=== PATIENT | male | born 1985 | race Caucasian/White ===

== ENCOUNTER 2017-11-17 16:16 | Emergency (ER) | payer OTHER ==
[2017-11-17 17:25] LABS: ABS Basophils 0 10^3/ul (0-0.2); ABS Eosinophils 0.2 10^3/ul (0-0.6); ABS Monocytes 0.6 10^3/ul (0-0.8); ABS Nucleated RBC 0 10^3/ul; Eosinophil % 4.2 % (0-6); Hematocrit 45 % (42-52); Hemoglobin 15.9 g/dl (14.0-18.0); Lymphocyte % 33.5 % (25-47); Mean Corpuscular HGB Conc 35 g/dl (31-36); Mean Corpuscular Hemoglobin 30 pg (27-31); Mean Corpuscular Volume 86 fL (80-94); Mean Platelet Volume 8.1 um3 (7.4-10.4); Nucleated Red Blood Cells % 0.1; Platelet Count 215 10^3/ul (150-450); Red Blood Count 5.25 10^6/ul (4.0-5.4); Red Cell Distribution Width 12 % (10.5-15); White Blood Count 5.9 10^3/ul (3.5-10.8)
[2017-11-17 17:44] LABS: EGFR Non-African American 77.9 (>60)
[2017-11-17] MEDS ORDERED: Iohexol 300* (CONTRAST) 10 ML SDV IV ONE (19:07)
--- NOTE | 2017-11-17 20:04 | RAD ---
CLINICAL HISTORY: Left lower quadrant pain in left upper quadrant pain COMPARISON: None TECHNIQUE: Multiple contiguous axial CT scans were obtained of the abdomen and pelvis after the administration of intravenous contrast. Coronal and sagittal multiplanar reformations are submitted for review. Oral contrast was not administered. Delayed images were obtained through the abdomen. FINDINGS: LUNG BASES: The lung bases are clear. LIVER: There is a hypervascular lesion of the right lobe liver measuring 1.5 cm that resolves on delayed images suggestive of a flash filling hemangioma. BILE DUCTS: There is no intrahepatic or extrahepatic biliary dilatation. GALLBLADDER: The gallbladder is normal, without pericholecystic inflammatory change. PANCREAS: The pancreas is normal, without mass or ductal dilatation. SPLEEN: Normal in size and appearance. UPPER GI TRACT: Evaluation of the gastrointestinal tract is limited by incomplete gastric distention. The upper GI tract is unremarkable. SMALL BOWEL AND MESENTERY: The small bowel is normal in contour, course, and caliber. There is no obstruction or dilatation. COLON: The colon is normal in contour, course, caliber. There is no pericolonic inflammatory change. There is a tubular, vermiform, hollow viscus that is blind ending, and originates from the cecum, consistent with a normal appendix. There is no periappendiceal inflammatory change. This is best seen on coronal images 35 through 41. ADRENALS: Normal bilaterally. KIDNEYS: The kidneys are normal in shape, size, contour, and axis. There is no hydronephrosis or nephrolithiasis. BLADDER: The bladder is smooth in contour. PELVIC ORGANS: The prostate gland is normal. The seminal vesicles are symmetric. AORTA: The aorta is normal. IVC: Unremarkable LYMPH NODES: There is no lymphadenopathy by size criteria. ABDOMINAL WALL: There is no evidence for abdominal wall hernia. BONES AND SOFT TISSUES: Unremarkable OTHER: None IMPRESSION: 1. HYPERVASCULAR LESION OF THE RIGHT LOBE OF LIVER. 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 RECOMMEND CONSIDERATION OF FURTHER EVALUATION WITH ULTRASOUND OF THE LIVER IN THE NONACUTE SETTING. 2. OTHERWISE UNREMARKABLE CT OF THE ABDOMEN AND PELVIS, WITHOUT ACUTE PATHOLOGY
[2017-11-17] MEDS ORDERED: Pantoprazole TAB (NF) 40 MG TAB PO ONE (20:54)
--- NOTE | 2017-11-17 20:56 | ED ---
Holly Leger Elizabeth, scribed for Krystian Young MD on 11/17/17 at 1858 . Abdominal Pain/Male - HPI Summary HPI Summary: This patient is a 32 year old M presenting to [facility] with a chief complaint of burning LUQ abd pain since 1 day ago. The patient notes that the pain radiates to the mid-left abdomen and the LLQ. The patient notes that he has had similar symptoms for the past 3 years but this is much worse than usual. The patient rates the pain 6/10 in severity. Symptoms aggravated by EtOH consumption. Symptoms alleviated by nothing. Patient denies N/V/D, fever, chills, and acid reflux. The patient reports that he had an endoscopy 3 years ago that was negative for any acute findings. - History of Current Complaint Chief Complaint: EDAbdPain Stated Complaint: ABD PAIN Time Seen by Provider: 11/17/17 18:45 Hx Obtained From: Patient Onset/Duration: Lasting Weeks - 3 years, Still Present, Worse Since - 1 day ago Timing: Constant Severity Initially: Mild Severity Currently: Moderate Pain Intensity: 6 Pain Scale Used: 0-10 Numeric Location: Discrete At: LUQ, Discrete At: LLQ, Epigastric Radiates: Yes Character: Burning Aggravating Factor(s): Other: - EtOH Alleviating Factor(s): Nothing Associated Signs And Symptoms: Positive: Negative - NEGATIVE N/V/D, NEGATIVE FEVER, NEGATIVE CHILLS - Allergies/Home Medications Allergies/Adverse Reactions: Allergies Allergy/AdvReac Type Severity Reaction Status Date / Time No Known Allergies Allergy Verified 10/30/15 15:22 Home Medications: Home Medications Albuterol HFA INHALER* [Ventolin HFA Inhaler*] 2 puff INH Q4H PRN 11/17/17 [ History Confirmed 11/17/17] Cetirizine* [ZyrTEC 10 MG TAB*] 10 mg PO DAILY 11/17/17 [History Confirmed 11/17] PMH/Surg Hx/FS Hx/Imm Hx Endocrine/Hematology History: Denies: Hx Diabetes, Hx Thyroid Disease Cardiovascular History: Denies: Hx Hypertension Respiratory History: Denies: Hx Asthma, Hx Chronic Obstructive Pulmonary Disease (COPD) GI History: Denies: Hx Ulcer - Surgical History Surgery Procedure, Year, and Place: none Infectious Disease History: No Infectious Disease History: Denies: Hx Clostridium Difficile, Hx Hepatitis, Hx Human Immunodeficiency Virus (HIV), Hx of Known/Suspected MRSA, Hx Shingles, Hx Tuberculosis, Hx Known/ Suspected VRE, Hx Known/Suspected VRSA, History Other Infectious Disease, Traveled Outside the [place] in Last 30 Days - Family History Known Family History: Positive: None, Other - Patient denies relevant FHx - Social History Alcohol Use: Weekly Substance Use Type: Reports: None Smoking Status (MU): Never Smoked Tobacco Have You Smoked in the Last Year: No Review of Systems Negative: Fever, Chills Negative: Epistaxis Positive: Abdominal Pain - LLQ, LUQ, Epigastric. Negative: Vomiting, Diarrhea, Nausea Negative: Headache All Other Systems Reviewed And Are Negative: Yes Physical Exam - Summary Physical Exam Summary: VITAL SIGNS: Reviewed. GENERAL: Patient is a well-developed and nourished male who is lying comfortable in the stretcher. ~Patient is not in any acute respiratory distress. HEAD AND FACE: Normocephalic and atraumatic. EYES: PERRLA, EOMI x 2, No injected conjunctiva. EARS: Hearing grossly intact. Ear canals and tympanic membranes are WNL. MOUTH: Oropharynx within normal limits. NECK: Supple, trachea is midline, no adenopathy, no JVD. CHEST: Symmetric, no tenderness at palpation LUNGS: Clear to auscultation bilaterally. No wheezing or crackles. CVS: RRR, S1 and S2 present, no murmurs or gallops appreciated. ABDOMEN: Soft, mild epigastric and LLQ tenderness. No signs of distention. Positive bowel sounds. No rebound no guarding, and no masses palpated. No abdominal bruit or pulsations. EXTREMITIES: FROM in all major joints, no edema, no cyanosis or clubbing. NEURO: Alert and oriented x 3. No acute neurological deficits. Speech is normal. SKIN: Dry and warm Triage Information Reviewed: Yes Vital Signs On Initial Exam: Initial Vitals Temp Pulse Resp BP Pulse Ox 98.1 F 72 16 134/87 100 11/17/17 16:36 11/17/17 16:36 11/17/17 16:36 11/17/17 16:36 11/17/17 16:36 Vital Signs Reviewed: Yes Diagnostics - Vital Signs Vital Signs Temp Pulse Resp BP Pulse Ox 11/17/17 16:36 98.1 F 72 16 134/87 100 - Laboratory Lab Results: Lab Results 11/17/17 11/17/17 Range/Units 17:12 17:12 WBC 5.9 (3.5-10.8) 10^3/ul RBC 5.25 (4.0-5.4) 10^6/ul Hgb 15.9 (14.0-18.0) g/dl Hct 45 (42-52) % MCV 86 (80-94) fL MCH 30 (27-31) pg MCHC 35 (31-36) g/dl RDW 12 (10.5-15) % Plt Count 215 (150-450) 10^3/ul MPV 8.1 (7.4-10.4) um3 Neut % (Auto) 50.8 (38-83) % Lymph % (Auto) 33.5 (25-47) % [place] % (Auto) 10.7 H (0-7) % Eos % (Auto) 4.2 (0-6) % Baso % (Auto) 0.8 (0-2) % Absolute Neuts (auto) 3.0 (1.5-7.7) 10^3/ul Absolute Lymphs (auto) 2.0 (1.0-4.8) 10^3/ul Absolute Monos (auto) 0.6 (0-0.8) 10^3/ul Absolute Eos (auto) 0.2 (0-0.6) 10^3/ul Absolute Basos (auto) 0 (0-0.2) 10^3/ul Absolute Nucleated RBC 0 10^3/ul Nucleated RBC % 0.1 Sodium 137 L (139-145) mmol/L Potassium 3.9 (3.5-5.0) mmol/L Chloride 102 (101-111) mmol/L Carbon Dioxide 27 (22-32) mmol/L Anion Gap 8 (2-11) mmol/L BUN 16 (6-24) mg/dL Creatinine 1.09 (0.67-1.17) mg/dL Est GFR ( Amer) 100.2 (>60) Est GFR (Non-Af Amer) 77.9 (>60) BUN/Creatinine Ratio 14.7 (8-20) Glucose 89 (70-100) mg/dL Calcium 9.5 (8.6-10.3) mg/dL Total Bilirubin 0.80 (0.2-1.0) mg/dL AST 22 (13-39) U/L ALT 25 (7-52) U/L Alkaline Phosphatase 42 (34-104) U/L Total Protein 7.5 (6.4-8.9) g/dL Albumin 4.7 (3.2-5.2) g/dL Globulin 2.8 (2-4) g/dL Albumin/Globulin Ratio 1.7 (1-3) Lipase 30 (11.0-82.0) U/L Result Diagrams: 11/17/17 17:12 11/17/17 17:12 Lab Statement: Any lab studies that have been ordered have been reviewed, and results considered in the medical decision making process. - CT CT Abd/Pelvis CT Interpretation: Positive (See Comments) - IMPRESSION: 1. HYPERVASCULAR LESION OF THE RIGHT LOBE OF LIVER. 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 RECOMMEND CONSIDERATION OF FURTHER EVALUATION WITH ULTRASOUND OF THE LIVER IN THE NONACUTE SETTING. 2. OTHERWISE UNREMARKABLE CT OF THE ABDOMEN AND PELVIS, WITHOUT ACUTE PATHOLOGY. Dr. Young has reviewed this report. CT Interpretation Completed By: Radiologist Abdominal Pain Fem Course/Dx - Course Assessment/Plan: Physician is a 32-year-old male who presents to the emergency department with a chief complaint of left-sided abdominal pain. Blood test results without any significant abnormality. Abdominopelvic CT impression: Hypervascular lesion of the right glove of liver. In absence of risk factors for hepatocellular carcinoma and most likely represents flash filling hemangioma. Recommend consideration of further evaluation with ultrasound of the right in and non acute setting. Otherwise unremarkable CT of abdomen and pelvis without acute pathology. In the ER the patient continues to be asymptomatic. Because of the findings of the CT of the common the patient to follow with the primary care physician. The patient will be given Protonix and follow with the PCP. I discussed all the findings and test results with the patient. Patient was instructed to return to the emergency room immediately if any of the symptoms return or worsens. Plan of care was discussed with the patient and understands and agrees. All questions were answered at patient satisfaction. There were no further complaints or concerns. Lung exam before discharge: CTA B/L. Good air exchange. No wheezing or crackles heard. CVS: S1 and S2 present. No murmurs appreciated. Patient is alert and oriented x 3. Patient is hemodynamically stable. Patient will be discharged home with follow up PCP in the next 2-3 days - Diagnoses Provider Diagnoses: Epigastric pain, Left sided abdominal pain Discharge - Sign-Out/Discharge Documenting (check all that apply): Discharge/Admit/Transfer - Discharge Plan Condition: Stable Disposition: HOME Patient Education Materials: Epigastric Pain (ED), Abdominal Pain (ED) Referrals: Fredy Silva MD [Primary Care Provider] - 2 Days Additional Instructions: Follow-up with primary care physician in 2-3 days. Return to the emergency department with any new or worsening symptoms. The documentation as recorded by the Holly de souza Elizabeth accurately reflects the service I personally performed and the decisions made by Hector hansen Walter, MD.
[2017-11-17 21:13] VITALS: BP 108/79
== END 2017-11-17 21:13 | disposition home or self-care (01) ==
LOC: ED 16:16
DX: R10.13 Epigastric pain (principal); R10.12 Left upper quadrant pain; K76.9 Liver disease, unspecified
CPT/HCPCS: 36415; 74177; 80053; 82150; 83690; 85025; 99282; A9270-GY; Q9967

== ENCOUNTER 2017-11-18 17:37 | Emergency (ER) | payer OTHER | END 2017-11-18 17:45 | disposition left against medical advice (07) | LOC: UCEAST 17:37 | DX: R07.81 Pleurodynia (principal); Z53.21 Procedure and treatment not carried out due to patient leaving prior to being seen by health care provider ==

== ENCOUNTER 2018-06-27 06:59 | Day surgery (SDC) | payer OTHER ==
[~2018-06-27 06:59] MED LIST: Buffered Lidocaine 0.9% SYRIN* 5 ML/SYR SYRINGE INTRADERM ONE; Dexamethasone IV* 4 MG/ML 1 ML (4 MG) IV SLOW PU ONE; Lactated Ringers 1000 ML Bag* 1,000 ML IV SCH; Metoclopramide IV* 5 MG/ML 2 ML VIAL IV SLOW PU ONE
[2018-06-27] MEDS ORDERED: Lidocain 1% EPI 1:100,000 * 30 ML MDV ONE ×2 (07:02→09:44)
[2018-06-27] MEDS ORDERED: ceFAZolin 2 GM PREMIX in ORs 2 GM/50 ML BAG IVPB ONE (07:42)
[2018-06-27] MEDS ORDERED: Dexamethasone IV* 4 MG/ML 1 ML (4 MG) ONE (07:42)
[2018-06-27] MEDS ORDERED: Metoclopramide IV* 5 MG/ML 2 ML VIAL ONE (07:42)
[2018-06-27] MEDS ORDERED: fentaNYL* 50 MCG/ML 5 ML VIAL (250 MCG VIAL) ONE (08:15)
[2018-06-27] MEDS ORDERED: Midazolam* 1 MG/ML 5 ML VIAL (5 MG) ONE (08:15)
[2018-06-27] MEDS ORDERED: Propofol* 10 MG/ML 20 ML BTL ONE ×2 (08:21→09:51)
[2018-06-27] MEDS ORDERED: Lidocaine 2% PF * 5 ML VIAL ONE (08:22)
[2018-06-27] MEDS ORDERED: fentaNYL* 50 MCG/ML 2 ML VIAL (100 MCG VIAL) IV PRN (09:30)
[2018-06-27] MEDS ORDERED: Naloxone* 0.4 MG/ML 1 ML VIAL IV PRN (09:30)
[2018-06-27] MEDS ORDERED: HYDROcodone/ACETAMIN 5-325 MG* 1 TAB PO PRN (09:30)
[2018-06-27] MEDS ORDERED: Morphine VIAL* 4 MG/ML VIAL (1 ml vial) IV PRN (09:30)
[2018-06-27] MEDS ORDERED: PROCHLORPERAZINE INJ 5 MG/ML 2 ML VIAL IV PRN (09:30)
[2018-06-27] MEDS ORDERED: Ibuprofen TAB* 600 MG PO PRN (09:30)
[2018-06-27] MEDS ORDERED: DiMENhydriNATE IV* 50 MG/ML VIAL IV PUSH PRN (09:30)
[2018-06-27] MEDS ORDERED: Acetaminophen TAB* 325 MG PO PRN (09:30)
[2018-06-27] MEDS ORDERED: Ondansetron INJ* 2 MG/ML VIAL ONE (09:48)
[2018-06-27] MEDS ORDERED: HYDROcodone/ACETAMIN 5-325 MG* 1 TAB ONE (10:36)
[2018-06-27 11:06] VITALS: BP 124/90
--- NOTE | 2018-06-27 16:02 | OP ---
CC: Zahra Frias NP, [facility] * DATE OF OPERATION: 06/27/18 - SDS DATE OF : 83 SURGICAL CARE: Right knee. SURGEON: Vickey Back MD COLOR MIXER: RADHA Hancock ANESTHESIOLOGIST: Dr. Solo. 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 OPERATIVE PROCEDURE: Right knee chondroplasty of the medial patella. OPERATIVE INDICATION: Persistent right knee medial pain, some catching, clicking. He had an MRI scan showing a discrete medial patellar facet cartilage defect. COMPLICATIONS: There were no complications. DRAINS: There were no drains. ESTIMATED BLOOD LOSS: 20 mL. REPLACEMENT: Crystalloid fluids. DESCRIPTION OF PROCEDURE: The patient was brought to the operating room and placed on the operating room table in the supine position. Following the administration of the anesthetic, the right proximal thigh was wrapped with a tourniquet and the left leg was prepped from the tourniquet to the foot, draped free and carefully sealed off in the usual fashion for arthroscopic surgery of the knee. The right leg, ankle, and foot portions were sealed off with an impermeable drape with a Vi- Drape wrapped around the calf at the top of that. We did our universal protocol time-out confirming Pepito Davalos and a plan for right knee arthroscopic surgery with work on the medial patella. We all agreed and we proceeded. The examination of this knee under anesthesia, right knee showed that there was no effusion. There was no patellar crepitation. There did not seem to be patellar instability. MCL and LCL stable. Demar and posterior drawer normal. The leg was exsanguinated and the tourniquet on the proximal right thigh was elevated to 275. The knee was set up for arthroscopy with the arthroscope lateral to the patellar tendon, probe and operating instruments medial to the patellar tendon and an inflow catheter superomedial to the patella. The survey of the joint showed that the medial and lateral gutters were normal. The ACL and PCL were normal. The medial femoral condyle, medial meniscus, medial tibial plateau satisfactory and normal. Lateral femoral condyle, lateral meniscus, lateral tibial plateau normal. The lateral patella was normal, the mid patella was normal, and then the medial facet had an area of cartilage softening and flaps. The mounds were elevated and photographs were obtained demonstrating this. There seemed to be possible little crystalline structures in the some of the cartilage flaps. This area was friable. I put the suction tip of the shaver near the cartilage and sucked into the tip and I took a photograph of that as well. Once the pathology was evident, I proceed with chondroplasty of this loose cartilage and the loose cartilage bed. My goal here was not to be too aggressive, hoping to preserve any remaining cartilage in the circumferential region and to remove the abnormal cartilage that I think was causing mechanical problems with functioning of his patellofemoral joint. Once the surgical care was completed, I took final photographs. The knee was irrigated with another 4 L of saline irrigation solution, then emptied, then instilled with Xylocaine 1% with epinephrine 30 mL on the skin portals. The surgical sites were closed with interrupted 3-0 Surgipro and a dressing applied after washing and drying of Betadine-soaked release sterile gauze, sterile Webril, cryotherapy cuff, ABD pads, and a 6-inch Aj bandage loosely applied. The patient was returned to the recovery room in stable and satisfactory condition, having tolerated the procedure very well. [id number]/[facility] #: [id number] CECY
== END 2018-06-27 11:24 | disposition home or self-care (01) ==
LOC: OR 06:59
PROVIDERS: ATTEND Orthopaedic Surgery
DX: M22.41 Chondromalacia patellae, right knee (principal); J45.909 Unspecified asthma, uncomplicated; K21.9 Gastro-esophageal reflux disease without esophagitis
CPT/HCPCS: 88304; J0690; J1100; J2250; J2405; J2704; J2765; J3010